=== PATIENT | male | born 1960 | race Two or more races ===

== ENCOUNTER 2018-07-14 10:05 | Outpatient (CLI) | payer OTHER ==
[~2018-07-14 10:05] MED LIST: ASA81 MG; FLEXERIL 10 MG PO; KEPPRA500 MG; OMEGA 3 1,0001 EACH; OSTERA TABLET1 EACH; TORADOL60 MG IM; VOLTAREM 50 MG PO
== END 2018-07-14 17:00 | disposition home or self-care (01) ==
LOC: SONOGRAMA 10:05
DX: R10.2 Pelvic and perineal pain (principal)

== ENCOUNTER 2018-07-19 08:02 | Outpatient (CLI) | payer OTHER | END 2018-07-19 08:10 | disposition home or self-care (01) | LOC: RAD 08:02 | DX: R31.29 Other microscopic hematuria (principal) ==

== ENCOUNTER 2018-07-19 08:30 | Outpatient (CLI) | payer OTHER | END 2018-07-19 08:33 | disposition home or self-care (01) | LOC: SONOGRAMA 08:30 | DX: R31.21 Asymptomatic microscopic hematuria (principal) ==

== ENCOUNTER 2018-08-12 16:55 | Outpatient (CLI) | payer OTHER | END 2018-08-12 17:05 | disposition home or self-care (01) | LOC: LAB 16:55 | DX: R97.20 Elevated prostate specific antigen [PSA] (principal) ==

== ENCOUNTER 2018-09-26 07:04 | Outpatient (CLI) | payer OTHER | END 2018-09-26 07:13 | disposition home or self-care (01) | LOC: SONOGRAMA 07:04 | DX: R97.20 Elevated prostate specific antigen [PSA] (principal) ==

== ENCOUNTER → 2019-01-24 07:20 | Outpatient (CLI) | payer OTHER | END | disposition home or self-care (01) | LOC: LAB 07:20 | DX: C61 Malignant neoplasm of prostate (principal); Z91.041 Radiographic dye allergy status ==

== ENCOUNTER → 2020-03-07 16:22 | Outpatient (CLI) | payer OTHER | END | disposition home or self-care (01) | LOC: LAB 16:22 | DX: R97.20 Elevated prostate specific antigen [PSA] (principal) ==

== ENCOUNTER 2020-03-25 07:12 | Outpatient (CLI) | payer OTHER | END 2020-03-25 07:22 | disposition home or self-care (01) | LOC: SONOGRAMA 07:12 | PROVIDERS: ATTEND Urology | DX: R97.20 Elevated prostate specific antigen [PSA] (principal) ==

== ENCOUNTER 2020-05-21 11:09 | Outpatient (CLI) | payer OTHER | END 2020-05-21 11:27 | disposition home or self-care (01) | LOC: RAD 11:09 | PROVIDERS: ATTEND Urology | DX: C61 Malignant neoplasm of prostate (principal) ==

== ENCOUNTER 2020-05-25 07:00 | Inpatient (IN) | payer OTHER ==
[~2020-05-25] VITALS: Ht 170.2 cm; Wt 73.9 kg
[2020-05-25] MEDS ORDERED: FOLIC PO (08:32)
[2020-05-25] MEDS ORDERED: [UNRECOGNIZED DRUG - OTHER] PO (08:33)
[2020-05-25] MEDS ORDERED: NEURIN SL (08:33)
[2020-06-01] MEDS ORDERED: FOLIC ACID1 MG PO (07:55)
[2020-06-01] MEDS ORDERED: ABANEU-SL TABL1 EACH SL (07:58)
[2020-06-01] MEDS ORDERED: KEPPRA1000 MG PO (07:59)
[2020-06-01] MEDS ORDERED: FUSION PLUS CA1 EACH PO (08:00)
[2020-06-01] MEDS ORDERED: VITAMIN D310 MC5 PO (08:00)
[2020-06-01] MEDS ORDERED: KEPPRA500 MG PO (08:01)
== END 2020-06-03 10:49 | disposition home or self-care (01) | DRG 708 ==
LOC: ADM 07:00 → O/R 06-01 06:00 → SURH 06-01 06:00 → CIR.AMB 06-01 07:00 → SURH 06-01 07:00 → EDSTATUS 06-01 07:00 → SURH 06-01 08:15 → ADM 06-01 08:30 → SURH 06-01 13:13
PROVIDERS: ADMIT Urology; ATTEND Urology
PROC: 07BC0ZX Excision of Pelvis Lymphatic, Open Approach, Diagnostic (ICD-10-PCS; 2020-06-01)
PROC: 0VT00ZZ Resection of Prostate, Open Approach (ICD-10-PCS; principal; 2020-06-01 08:15)
DX: C61 Malignant neoplasm of prostate (principal); G40.909 Epilepsy, unspecified, not intractable, without status epilepticus; D64.9 Anemia, unspecified

== ENCOUNTER → 2020-06-30 09:46 | Outpatient (CLI) | payer OTHER ==
[~2020-06-30 09:46] MED LIST changes: +ABANEU-SL TABL1 EACH SL; +FOLIC ACID1 MG PO; +FOLIC PO; +FUSION PLUS CA1 EACH PO; +KEPPRA1000 MG PO; +KEPPRA500 MG PO; +NEURIN SL; +VITAMIN D310 MC5 PO; +[UNRECOGNIZED DRUG - OTHER] PO
== END | disposition home or self-care (01) ==
LOC: LAB 09:46
PROVIDERS: ATTEND Urology
DX: C61 Malignant neoplasm of prostate (principal); N30.00 Acute cystitis without hematuria

== ENCOUNTER 2020-09-27 08:00 | Outpatient (CLI) | payer OTHER | END 2020-09-27 08:49 | disposition home or self-care (01) | LOC: LAB 08:00 | PROVIDERS: ATTEND Specialist | DX: Z00.8 Encounter for other general examination (principal); C61 Malignant neoplasm of prostate; G40.909 Epilepsy, unspecified, not intractable, without status epilepticus; Z85.46 Personal history of malignant neoplasm of prostate; E55.9 Vitamin D deficiency, unspecified; Z28.21 Immunization not carried out because of patient refusal ==

== ENCOUNTER 2021-01-03 06:59 | Outpatient (CLI) | payer OTHER | END 2021-01-03 07:00 | disposition home or self-care (01) | LOC: LAB 06:59 | PROVIDERS: ATTEND Urology | DX: C61 Malignant neoplasm of prostate (principal) ==

== ENCOUNTER 2021-04-10 07:06 | Outpatient (CLI) | payer OTHER | END 2021-04-10 07:08 | disposition home or self-care (01) | LOC: LAB 07:06 | PROVIDERS: ATTEND Urology | DX: C61 Malignant neoplasm of prostate (principal) ==

== ENCOUNTER 2022-01-10 07:01 | Outpatient (CLI) | payer OTHER | END 2022-01-10 07:10 | disposition home or self-care (01) | LOC: LAB 07:01 | PROVIDERS: ATTEND Urology | DX: C61 Malignant neoplasm of prostate (principal) ==

== ENCOUNTER 2022-04-19 09:54 | Outpatient (CLI) | payer OTHER | END 2022-04-19 09:55 | disposition home or self-care (01) | LOC: LAB 09:54 | DX: Z20.828 Contact with and (suspected) exposure to other viral communicable diseases (principal) ==

== ENCOUNTER 2022-04-21 13:37 | Emergency (ER) | payer OTHER ==
[~2022-04-21] VITALS: Ht 167.6 cm; Wt 74.8 kg
== END 2022-04-21 14:15 | disposition home or self-care (01) ==
LOC: ER 13:37
DX: S60.412A Abrasion of right middle finger, initial encounter (principal); W26.0XXA Contact with knife, initial encounter; Y93.G3 Activity, cooking and baking; Y92.9 Unspecified place or not applicable; Y99.9 Unspecified external cause status

== ENCOUNTER 2022-05-14 09:32 | Outpatient (CLI) | payer OTHER | END 2022-05-14 09:47 | disposition home or self-care (01) | LOC: TOM 09:32 | PROVIDERS: ATTEND Specialist | DX: U07.1 COVID-19 (principal); B34.2 Coronavirus infection, unspecified; R05.9 Cough, unspecified; R06.02 Shortness of breath ==

== ENCOUNTER 2022-07-24 10:26 | Outpatient (CLI) | payer OTHER | END 2022-07-24 10:27 | disposition home or self-care (01) | LOC: LAB 10:26 | PROVIDERS: ATTEND Urology | DX: C61 Malignant neoplasm of prostate (principal) ==

== ENCOUNTER 2023-01-24 04:19 | Emergency (ER) | payer OTHER ==
[~2023-01-24] VITALS: Ht 167.6 cm; Wt 75.7 kg
[2023-01-24] MEDS ORDERED: CEPHALEXIN500 MG PO (06:23)
== END 2023-01-24 06:27 ==
LOC: ER 04:19
DX: S01.01XA Laceration without foreign body of scalp, initial encounter (principal); S09.90XA Unspecified injury of head, initial encounter

== ENCOUNTER 2023-02-04 21:28 | Emergency (ER) | payer OTHER ==
[~2023-02-04] VITALS: Ht 170.2 cm; Wt 75.7 kg
[~2023-02-04 21:28] MED LIST changes: +CEPHALEXIN500 MG PO
== END 2023-02-04 22:51 | disposition home or self-care (01) ==
LOC: ER 21:28
DX: Z48.02 Encounter for removal of sutures (principal)

== ENCOUNTER 2023-05-01 08:12 | Inpatient (IN) | payer OTHER ==
[~2023-05-01] VITALS: Ht 152.4 cm; Wt 70.8 kg
[2023-05-02] MEDS ORDERED: PILOCARPINE HCL15 M3 (08:28)
[2023-05-03] MEDS ORDERED: KEPPRA500 MG PO ×2 (19:20)
[2023-05-03] MEDS ORDERED: AMOX-CLAV 875-1 EACH PO ×2 (19:22)
[2023-05-03] MEDS ORDERED: INTESTINEX680 M1 PO ×2 (19:22)
[2023-05-04] MEDS ORDERED: BIOTIN-VITAMIN1 EACH (07:54)
== END 2023-05-03 19:28 | disposition home or self-care (01) | DRG 392 ==
LOC: ER 08:12 → MEDJ 19:18
PROVIDERS: ADMIT Internal Medicine; ATTEND Internal Medicine
PROC: BW21ZZZ Computerized Tomography (CT Scan) of Abdomen and Pelvis (ICD-10-PCS; principal; 2023-05-01)
DX: K57.92 Diverticulitis of intestine, part unspecified, without perforation or abscess without bleeding (principal); D72.829 Elevated white blood cell count, unspecified

== ENCOUNTER 2023-05-04 07:32 | Emergency (ER) | payer OTHER ==
[~2023-05-04] VITALS: Ht 170.2 cm; Wt 74.8 kg
[~2023-05-04 07:32] MED LIST changes: +AMOX-CLAV 875-1 EACH PO; +INTESTINEX680 M1 PO; +PILOCARPINE HCL15 M3
[2023-05-04] MEDS ORDERED: BIOTIN-VITAMIN1 EACH (07:54)
== END 2023-05-04 12:26 | disposition home or self-care (01) ==
LOC: ER 07:32
DX: L03.114 Cellulitis of left upper limb (principal)

== ENCOUNTER 2024-08-29 10:55 | Outpatient (CLI) | payer OTHER ==
[~2024-08-29 10:55] MED LIST changes: +BIOTIN-VITAMIN1 EACH; +CRESTOR5 MG PO; +KETO10TA2 PO
== END 2024-08-29 11:05 | disposition home or self-care (01) ==
LOC: RAD 10:55
PROVIDERS: ATTEND Orthopaedic Surgery Sports Medicine
DX: M25.512 Pain in left shoulder (principal)